=== PATIENT | female | born 1965 | race Two or more races ===

== ENCOUNTER 2024-11-01 09:34 | Emergency (ER) | payer OTHER, SELFPAY ==
--- OUTSIDE RECORDS SUMMARY | 2024-11-01 09:38 | XMS_ITS | Referral Summary ---
Author Organization [facility] Address [address] [place] [id number] Care Team Providers Care Mva Operator Name Role Phone Md, Not Listed Primary Care Provider Unavailabl e Allergies No known active allergies Medications metFORMIN (GLUCOPHAGE) 1,000 mg oral tablet Take 1,000 mg by mouth twice a day. 11/06/2020 Active atorvastatin (LIPITOR) 20 mg oral tablet Take 20 mg by mouth once daily. 11/06/2020 Active lisinopriL (PRINIVIL) 20 mg oral tablet Take 20 mg by mouth once daily. 11/06/2020 Active JANUVIA 100 mg oral tablet Take 100 mg by mouth once daily. 11/13/2020 Active levothyroxine (SYNTHROID) 150 mcg oral tablet Take 150 mcg by mouth once daily. 11/06/2020 Active aspirin 81 mg oral enteric coated tablet Take 81 mg by mouth once daily. 11/06/2020 Active JARDIANCE 10 mg oral Tab Take 10 mg by mouth once daily. 11/06/2020 Active acetaminophen (TYLENOL) 500 mg oral tablet Take 2 tablets (1,000 mg) by mouth every 6 (six) hours. 0 11/25/2020 Active lidocaine 5% (LIDODERM) Top patch Apply 1-2 patches to skin once daily. Keep on for 12 hours and remove for 12 hours 15 patch 11/26/2020 Active methocarbamoL (ROBAXIN) 500 mg oral tablet Take 1-1.5 tablets (500-750 mg) by mouth every 6 (six) hours as needed. 20 tablet 1 11/26/2020 12:07 PM CDT 11/25/2020 Active ondansetron (ZOFRAN) 4 mg oral ODT Dissolve 1 tablet (4 mg) in mouth every 6 (six) hours as needed. 10 tablet 11/26/2020 12:07 PM CDT 11/25/2020 Active oxyCODONE, immediate release, (ROXICODONE) 5 mg oral tablet Take 1 tablet (5 mg) by mouth every 8 (eight) hours as needed. 5 tablet 11/26/2020 12:07 PM CDT 11/25/2020 Active polyethylene glycol (MIRALAX) 17 gram oral packet Take 17 g by mouth once a day as needed for constipation. Mix each dose in 4-8 ounces of liquid as directed. 0 11/25/2020 Active senna-docusate (SENNA-S) 8.6-50 mg oral tablet Take 1-2 tablets by mouth twice a day. 10 tablet 11/26/2020 12:07 PM CDT 11/25/2020 Active dexAMETHasone (DECADRON) 1 mg oral tablet Take 1 tablet (1 mg) twice daily for 2 days, then 1 tablet (1 mg) once daily for 2 days, then one-half tablet (0.5 mg) once daily for 2 days. 7 tablet 11/26/2020 12:07 PM CDT 11/26/2020 Active pen needle, diabetic 31 gauge x 5/16 needle Use as directed 100 each 11/26/2020 12:07 PM CDT 11/26/2020 Active insulin aspart, pen, (NOVOLOG) 100 units/mL SubQ pen For mealtime glucose 120-149 mg/dL give 2 units, 150-199 mg/dL give 4 units, 200-249 mg/dL give 8 units, 250-299 mg/dL give 12 units, 300-349 mg/dL give 16 units, 350 mg/dL or greater give 20 units and recheck glucose in 2 hours and call MD if greater than 350 mg/dL. For bedtime glucose less than 200 mg/dL give 0 units, 200-249 mg/dL give 4 units, 250-299 mg/dL give 6 units, 300-349 mg/dL give 8 units, 350 mg/dL or greater give 10 units and recheck glucose in 2 hours and call MD if greater than 350 mg/dL 15 mL 11/26/2020 Active Active Problems Problem Noted Date Diagnosed Date Traumatic subarachnoid hemor rhage without loss of consciousness, initial encounter 11/23/2020 Scalp laceration, initial encounter 11/23/2020 Acute pain due to trauma 11/23/2020 Fall from slip, trip, or stumble 11/23/2020 Social History Tobacco Use Types Packs/Day Years Used Date Smoking Tobacco: Every Day Cigarettes Smokeless Tobacco: Never Alcohol Use Standard Drinks/Week Comments Yes 0 (1 standard drink = 0.6 oz pur e alcohol) Comments Unknown Sex and Gender Information Value Date Recorded Sex Assigned at Not on file Legal Sex Female 3:47 PM CDT Gender Identity Not on file Sexual Orientation Not on file Last Filed Vital Signs Vital Sign Reading Time Taken Comments Blood Pressure 124/78 11/26/2020 5:07 PM CDT Pulse 65 11/26/2020 5:07 PM CDT Temperature 36.9 C (98.4 F) 11/26/2020 5:07 PM CDT Respiratory Rate 18 11/26/2020 5:07 PM CDT Oxygen Saturation 96% 11/26/2020 5:07 PM CDT Inhaled Oxygen Concentration - - Weight 76.8 kg (169 lb 5 oz) 11/23/2020 10:45 PM CDT Height 167.6 cm (5' 6) 11/23/2020 10:45 PM CDT Body Mass Index 27.33 11/23/2020 10:45 PM CDT Plan of Treatment Not on file Insurance [employer] [place] [id number] Advance Directives For more information, please contact: [phone] * Full Code (Latest Code Status on File) Date Activated Date Inactivated Comments 11/23/2020 10:48 PM 11/26/2020 11:24 PM Question Answer Comments How was code status determined? Physician Yocasta thibodeaux * Full Code Date Activated Date Inactivated Comments 11/23/2020 10:48 PM 11/23/2020 10:48 PM Question Answer Comments How was code status determined? Physician Yocasta thibodeaux Care Teams Mva Operator Relationship Specialty Start Date End Date , Not Listed no address PCP - General Internal Medicine 11/23/20
--- OUTSIDE RECORDS SUMMARY | 2024-11-01 09:38 | XMS_ITS | Clinical Summary ---
Author Organization [facility] Address [address] [place] [address] Care Team Providers Care Mechanical Engineering Manager Name Role Phone No Primary/Referring, Phy Primary Care Provider Unavailable Source Comments You are receiving this document as you are listed as the primary care provider,follow-up provider, or the patient has been referred to you for consultation.This is in compliance with the Medicare andMedicaid EHR Incentive Program,which states Providers who transition their patient to another setting of careor provider of care or refers their patient to another provider of care shouldprovide summary care record for each transition of care or referral. [facility] Allergies No known active allergies Medications lisinopril (ZESTRIL) 20 MG tablet Take 20 mg by mouth daily. Active lidocaine (XYLOCAINE) 2 % jelly Apply topically. Apply to affected area with a cotton ball after bathing and using the BR Active metFORMIN (GLUCOPHAGE) 500 MG tablet Take 500 mg by mouth two times a day with meals. Active HYDROcodone-lucero taminophen (NORCO) 5-325 MG tablet 06/02/2021 Active omeprazole (PRILOSEC) 20 MG capsule Take 20 mg by mouth. 06/01/2021 Active Family History Medical History Relation Name Comments Cancer, Breast Negative Family History Cancer, Ovary Negative Family History Social History Tobacco Use Types Packs/Day Years Used Date Smoking Tobacco: Never Assessed Comments No Sex and Gender Information Value Date Recorded Sex Assigned at Not on file Legal Sex Female 11:27 AM STATE MANAGER Gender Identity Not on file Sexual Orientation Not on file Plan of Treatment Health Maintenance Due Date Last Done Comments Cervical Cancer Screening Due 1966 Colon Cancer Screening Plan Due 1966 Hep C Screening (Preventive Services) 1966 HIV Screening (Preventive Services) 1982 Adult Preventive Visit 1984 DTaP/Tdap/Td (1 - Tdap) 1985 HepB (1) 1985 Cholesterol 2011 Pneumococcal 50+ Yrs (1 of 1 - PCV) 2016 Zoster/Shingles (1 of 2) 2016 Mammogram 09/10/2018 09/10/2017 COVID-19 Vaccine (1 - 2023-2 5 season) 2024 Influenza (#1) 2024 HepA Aged Out No longer eligi ble based on patient's age to complete this topic Hib Aged Out No longer eligi ble based on patient's age to complete this topic IPV (Polio) Aged Out No longer eligi ble based on patient's age to complete this topic MCV4 Aged Out No longer eligi ble based on patient's age to complete this topic Meningococcal B Aged Out No longer el igible based on patient's age to complete this topic Procedures Procedure Name Priority Date/Time Associated Diagnosis Comments MM MAMMOGRAM SCREENING BILAT W 3D JEFFREY W CAD Routine 09/10/2017 3:52 PM STATE MANAGER Encounter for screening mammogram for malignant neoplasm of breast from Last 3 Months or Most Recently Relevant to Health Maintenance Results * (ABNORMAL) MM Mammogram Screening Bilat W Jeffrey W CAD (09/10/2017 3:52 PM STATE MANAGER) Anatomical Region Laterality Modality Breast Bilateral Mammography Impressions 09/10/2017 4:03 PM STATE MANAGER : ACR BI-RADS Category 0: Need Additional Imaging Evaluation RECOMMENDATION: Additional Mammographic Images and Ultrasound, Magnification Views and with thought towards biopsy. A member of the breast center staff will be contacting the patient to arrange for this additional study. For the convenience of the patient, a stereotactic guided biopsy will be scheduled for the same visit. If the biopsy is felt to be unnecessary after evaluating the additional imaging, the biopsy will be canceled of the left breast. The results and recommendations of this examination will be communicated to the patient and the imaging center will attempt to schedule any recommended follow up with the patient. Narrative 09/10/2017 4:03 PM STATE MANAGER MM MAMMOGRAM SCREENING BILAT W JEFFREY W CAD performed on 09/10/17 No comparisons were made when reading this study. Baseline. FINDINGS: Bilateral screening mammogram was performed with the assistance of Computer-Aided Detection and breast tomosynthesis. The breasts have scattered areas of fibroglandular density. There are indeterminate calcifications in the left breast in the retroareolar plane at posterior depth. There is an asymmetry in the left breast on the MLO view in the retroareolar plane at middle depth. The remainder of the breast tissue is unremarkable. Christina Aguilar MD RAD [facility] Final Result from Last 3 Months or Most Recently Relevant to Health Maintenance Insurance MEDICA CHOICE Care Teams Mechanical Engineering Manager Relationship Specialty Start Date End Date No Primary/Referring, Phy PCP - General 09/03/17
--- OUTSIDE RECORDS SUMMARY | 2024-11-01 09:38 | XMS_ITS | Encounter Summary ---
Author Organization [facility] Address [address] [place] [address] Care Team Providers Care Digital Marketing Analyst Name Role Phone No Primary/Referring, Phy Primary Care Provider Unavailable Encounter Details Date Type Department Care Team (Late st Contact Info) Description 09/22/2017 Consent for Procedure/Treatme nt [facility] INFORMED CONSENT RECORD Social History Tobacco Use Types Packs/Day Years Used Date Smoking Tobacco: Never Assessed Comments No Sex and Gender Information Value Date Recorded Sex Assigned at Not on file Legal Sex Female 11:27 AM PIN 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
--- OUTSIDE RECORDS SUMMARY | 2024-11-01 09:38 | XMS_ITS | Clinical Summary ---
Author Organization [facility] Address [address] [place] [id number] Care Team Providers Care Card Game Operator Name Role Phone [facility], [facility] Primary Care Provider + Allergies No known active allergies Medications naproxen (NAPROSYN) 500 mg tabletIndications: RUQ abdominal pain Take 1 tablet by mouth every 12 hours if needed for Pain. 30 tablet 0 Active aspirin (ECOTRIN) 81 mg enteric coated tablet Take 81 mg by mouth. 1 Active atorvastatin (LIPITOR) 20 mg tablet Take 20 mg by mouth. 1 Active dexAMETHasone (DECADRON) 1 mg tablet Take 2 mg by mouth. 1 Active empagliflozin (Jardiance) 10 mg tablet Take 10 mg by mouth. 1 Active insulin aspart, U-100, (NOVOLOG FLEXPEN) 100 unit/mL (3 mL) pen Inject 1-20 units subcutaneous. 1 Active levothyroxine (SYNTHROID) 150 mcg tablet Take 150 mcg by mouth. 1 Active lisinopriL (PRINIVIL; ZESTRIL) 20 mg tablet Take 20 mg by mouth. 1 Active ondansetron (ZOFRAN ODT) 4 mg disintegrating tablet Take 4 mg by mouth. 1 Active oxyCODONE (ROXICODONE) 5 mg immediate release tablet Take 5 mg by mouth. 1 Active sennosides-docusat e (SENOKOT S) (8.6-50 mg) tablet Take 1-2 Tablets by mouth. 1 Active SITagliptin (Januvia) 100 mg tablet Take 100 mg by mouth. 1 Active omeprazole (PRILOSEC) 20 mg Delayed-Release capsuleIndications :Right upper quadrant abdominal pain Take 1 Capsule (20 mg) by mouth once daily before a meal. 30 Capsule 1 Active metFORMIN (GLUCOPHAGE) 500 mg tablet Take 500 mg by mouth. Active polyethylene glycol (MIRALAX; GLYCOLAX) 17 g powder for solution Mix 17 g in liquid then take by mouth. 1 Active polyethylene glycoL (MIRALAX) 17 gram/dose powder 1 Active UltiCare Pen Needle 31 gauge x 5/16 1 Active lidocaine (XYLOCAINE) 2 % gel Apply topically to affected area(s). Active pantoprazole (PROTONIX) 40 mg delayed-release tabletIndications: Epigastric abdominal pain,Chest pain, unspecified type Take 1 Tablet (40 mg) by mouth once daily. 14 Tablet 3 Active metFORMIN (GLUCOPHAGE) 1,000 mg tablet Take 1 Tablet (1,000 mg) by mouth two times daily with meals. 3 Active ibuprofen (ADVIL; MOTRIN) 600 mg tabletIndications: Rib contusion, left, initial encounter,Fall, initial encounter,Left-noemi ed chest wall pain Take 1 Tablet (600 mg) by mouth every 8 hours if needed for Pain. Maximum of 1800 mg in 24 hours. 20 Tablet 09/30/2023 4:22 PM CDT 4 Active lidocaine 5 % topical patchIndications:R ib contusion, left, initial encounter,Left-noemi ed chest wall pain Apply to intact skin to cover most painful area for max 12hr per 24hr period. 30 Patch 4 Active methocarbamoL (ROBAXIN) 750 mg tabletIndications: Rib contusion, left, initial encounter,Left-noemi ed chest wall pain Take 1 Tablet (750 mg) by mouth every 8 hours if needed for Muscle Spasm (chest wall pain). 15 Tablet 09/30/2023 4:22 PM CDT 4 Active Active Problems Problem Noted Date Diagnosed Date Concussion with no loss of consciousness 022 Cognitive impairment 12/24/2021 Other acute pancreatitis without necrosis or inf ection 07/04/2021 Concussion with loss of consciousness 03/28/2021 Post concussion syndrome 03/28/2021 Vision disorder 03/28/2021 Tinnitus of left ear 03/28/2021 Decreased hearing of left ear 03/28/2021 Vestibular dysfunction 03/28/2021 Neck pain 03/28/2021 Post-concussion headache 03/28/2021 TMJ (temporomandibular joint disorder) Acute pain due to trauma 11/23/2020 Fall from slip, trip, or stumble 11/23/2020 Scalp laceration, initial encounter 11/23/2020 Traumatic subarachnoid hemor rhage without loss of consciousness, initial encounter 11/23/2020 Family History Relation Name Status Comments Brother 1 Alive Brother 2 Alive Father Mother Sister 1 Alive Sister 2 Alive Sister 3 Alive Sister 4 Alive Sister 5 Alive Sister 6 Social History Tobacco Use Types Packs/Day Years Used Date Smoking Tobacco: Some Days Cigarettes 0.1 15.3 Started: 07/20/2009 Smokeless Tobacco: Never Tobacco Cessation:Ready to Q uit: Not Asked; Counseling Given: Not Answered Alcohol Use Standard Drinks/Week Comments Yes 0 (1 standard drink = 0.6 oz pur e alcohol) Holidays and special occas. Social Connections Answer Date Recorded Do you often feel lonely or isolated from those around you? 0 10/17/2023 Financial Resource Strain Answer Date R ecorded Difficulty of Paying Living Expenses 3 10/17/2023 Difficulty of Paying Living Expenses Not on file 10/17/2023 Food Insecurity Answer Date Recorded Do you worry your food will run out before you are able to buy more? 1 10/17/2023 Transportation Needs Answer Date Record ed Does lack of transportation keep you from medica l appointments? 1 10/17/2023 Does lack of transportation keep you from work, meetings or getting things that you need? 1 10/17/2023 Housing Stability Answer Date Recorded What is your housing situation today? 1 10/17/2023 Interpersonal Safety Answer Date Record ed Are you being hit, kicked, p ushed or yelled at (see row info)? No 09/30/2023 Interpersonal Safety Abuse 12 - 18 Not on file 09/30/2023 Interpersonal Safety Ambulatory Vulnerability No t on file 09/30/2023 Utilities Answer Date Recorded Do you have trouble paying f or utilities (for example, heat, electricity, water, phone)? 1 10/17/2023 Comments No Sex and Gender Information Value Date Recorded Sex Assigned at Not on file Legal Sex Female 7:33 AM CDT Gender Identity Not on file Sexual Orientation Not on file Obstetrics History Last Filed Vital Signs Vital Sign Reading Time Taken Comments Blood Pressure 119/70 10/17/2023 11:47 AM CDT Pulse 85 10/17/2023 11:47 AM CDT Temperature 36.8 C (98.2 F) 10/17/2023 11:47 AM CDT Respiratory Rate 22 09/30/2023 2:23 PM CDT Oxygen Saturation 100% 10/17/2023 11:47 AM CDT Inhaled Oxygen Concentration - - Weight 77.1 kg (170 lb) 10/17/2023 11:47 AM CDT Height 165.1 cm (5' 5) 10/17/2023 11:47 AM CDT Body Mass Index 28.29 10/17/2023 11:47 AM CDT Plan of Treatment Health Maintenance Due Date Last Done Comments Tdap 1977 Depression screening for age 12+ 1978 HIV for age 15-65 1981 Hepatitis C screening for ag e 18-79 1984 Pneumococcal series for age 50+ (1 of 2 - PCV) 1985 Tetanus booster 1986 Pap test for age 21-65 1987 Colonoscopy through age 75 2011 Lipids for age 45-75 2011 Mammogram for age 45-75 2011 Zoster (shingles) series for age 50+ (1 of 2) 2016 COVID-19 vaccine series ( season) 2024 04/26/2022, 08/16/2021, 11/06/2020, Additional history exists BMI (ht and wt on same day) for age 18+ 10/16/2024 10/17/2023 Influenza Vaccine (Season Ended) 2025 Insurance MEDICA CHOICE [employer]ICE [place] [id number] MEDICA CHOICE [facility] [employer] Care Teams Card Game Operator Relationship Specialty Start Date End Date Clinic, [facility] [address] [place] [address] PCP - General 12/14/18
--- OUTSIDE RECORDS SUMMARY | 2024-11-01 09:38 | XMS_ITS | Clinical Summary ---
Author Organization [facility] Address [address] [place] [id number] Care Team Providers Care Reo Asset Manager Name Role Phone Md, Not Listed Primary [...] 11/23/2020 10:45 PM CDT Plan of Treatment Health Maintenance Due Date Last Done Comments Colonoscopy 1966 Hepatitis C Screening 1966 Mammogram Screening 1966 Pap Smear 1966 Anxiety Screening (BJ-2) 1967 Depression Assessment (PHQ-2) 1967 Adult Tetanus Booster 1985 Pneumococcal 50+ Years (1 of 1 - PCV) 2016 Zoster Vaccine (1 of 2) 2016 Yearly Review of HCD 11/23/2021 11/23/2020 COVID-19 Vaccine (3 - 2023-2 5 season) 2024 11/06/2020, 10/08/2020 Influenza Vaccine (Season Ended) 2025 05/02/2019, 04/28/2018 RSV Vaccines (1 - 1-dose 75+ series) 2041 Pneumococcal Vaccine Aged Out No long er eligible based on patient's age to complete this topic Insurance MEDICA [employer] Advance Directives For more information, please contact: [phone] * Full Code (Latest Code Status on File) Date Activated Date Inactivated Comments 11/23/2020 10:48 PM 11/26/2020 11:24 PM Question Answer Comments How was code status determined? Physician Yocasta thibodeaux * Full Code Date Activated Date Inactivated Comments 11/23/2020 10:48 PM 11/23/2020 10:48 PM Question Answer Comments How was code status determined? Physician Yocasta thibodeaux Care Teams Reo Asset Manager Relationship Specialty Start Date End Date Md, Not Listed no address PCP - General Internal Medicine 11/23/20
[2024-11-01 10:04] VITALS: BP 172/85; PULSE 80; RESP 18; TEMP 36.8; O2SAT 97
--- NOTE | 2024-11-01 10:10 | CRLHL7_ITS ---
For Patients: As a result of the Century Cures Act, medical imaging exams and procedure reports are released immediately into your electronic medical record. You may view this report before your referring provider. If you have questions, please contact your health care provider. INDICATION: Leg pain and swelling TECHNIQUE: Ultrasound venous duplex lower right extremity. Compression venous exam was performed using bourne-scale, color Doppler, and spectral Doppler imaging. COMPARISON: None. FINDINGS: Sonographic imaging demonstrates the right common femoral, deep femoral, superficial femoral, popliteal, posterior tibial and greater saphenous and the contralateral left common femoral veins to be fully compressible with normal color Doppler blood flow. IMPRESSION: Normal right lower extremity venous ultrasound, no sign of deep venous thrombosis. Dictated by Mitesh Young MD @ 11/01/2024 11:15:49 AM (Electronically Signed)
--- NOTE | 2024-11-01 11:22 | ED_ITS ---
HPI - General Adult General Date Seen: 11/01/24 Chief complaint: Extremity Pain/Injury, Lower Stated complaint: right leg pain- vein inflamation Time Seen by Provider: 11/01/24 09:41 History of Present Illness HPI narrative: Patient is a 59-year-old woman here with her daughters for evaluation of pain in her right leg and her right SI joint. Symptoms started on Thursday but today were worse. It sounds like pain is primarily in the right SI joint, it does not really hurt to move but she has pain with weight-bearing. No trauma, no fevers. She has varicosities in her legs, pretty significantly, but they are not sure whether these are the source of her leg pain. She does not have pain that radiates into the lower leg. She does not have any numbness or weakness. She does not have any swelling in legs. She has been using ibuprofen and massage without any change. She feels like there is a lump in her back that is the source of her pain. 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 Medical history is notable for diabetes, hypertension, and she just had a couple of his skin cancers removed on her face. As a result she is currently living with her daughter, does not have a local doctor. Related Data Allergies Allergy/AdvReac Type Severity Reaction Status Date / Time No Known Drug Allergies Allergy Verified 11/01/24 10:04 Review of Systems Status of ROS: Reports: 6 or more systems reviewed and unremarkable except as noted in History and below PFSH [facility] Social History How often do you have a drink containing alcohol: never AUDIT-C Alcohol total score: 0 Non-prescribed substance use: denies use Exam Narrative: Exam Narrative: Vital signs reviewed In general, alert, nontoxic woman. Head: Normocephalic, atraumatic. Eyes: Sclera clear. Pupils equal and reactive. ENT: Mucous membranes moist. Neck: Supple without adenopathy. Heart: Regular rate and rhythm without murmur. Lungs: Clear. No increased work of breathing, crackles or wheezes. Abdomen: Soft, nontender to palpation. Back: She has isolated tenderness over the right SI joint. There is no erythema or rash. Extremities: Well perfused, pulses intact. No significant edema. She has extensive varicosities without erythema or tenderness. Neurologic: Alert, conversant. Speech fluent, face symmetric. Moves all extremities equally. Strength is 5 of 5 in bilateral lower extremities. Sensations intact to light touch. Skin: Warm, dry well perfused. Affect: Normal. Const: Vital Signs, click to edit/add: Vital Signs - 24 hr 11/01/24 10:04 Temperature 98.3 F Pulse Rate [Pulse Oximeter] 80 Respiratory Rate 18 Blood Pressure [Ri ght Upper Arm] 172/85 H Pulse Oximetry 97 Oxygen Delivery Me thod Room Air Course Course ED Course: Expect her symptoms are related to some SI joint inflammation with a little bit of sciatica. I am less suspicious of disc herniation at this time, although radiculopathy is a possibility. She is neurologically intact. We did do a venous Doppler which was negative for DVT. She does not have any signs on exam of significant superficial thrombophlebitis, and I do not think her varicosities are playing a significant role in her symptoms. She is not febrile, no recent trauma, no red flags to suggest she needs more urgent imaging for back. I am going to do a plain film of her pelvis to make sure that there are no concerning findings there. Otherwise, I think it is reasonable just to treat conservatively with anti-inflammatories, I think a trial of prednisone is reasonable, continued NSAIDs, a short trial of something like tramadol and then she will need primary care follow-up. If not improving, more advanced imaging may be reasonable. I reviewed her x-ray, no acute findings. Radiology read notes some degenerative changes otherwise negative. I prescribed prednisone, tramadol, primary care follow-up in the coming week if not improving. Return for worsening symptoms. Vital Signs Vital signs: Initial Vital Signs Temperature 98.3 F 11/01/24 10:04 Temperature Source Temporal Artery Scan 11/01/24 10:04 Pulse Rate 80 11/01/24 10:04 Respiratory Rate 18 11/01/24 10:04 Blood Pressure 172/85 H 11/01/24 10:04 Blood Pressure Mean 114 H 11/01/24 10:04 Pulse Oximetry 97 11/01/24 10:04 Oxygen Delivery Method Room Air 11/01/24 10:04 Vital Signs Temperature 98.3 F 11/01/24 10:04 Pulse Rate 80 11/01/24 10:04 Respiratory Rate 18 04/15/25 10:04 Blood Pressure 172/85 H 11/01/24 10:04 Pulse Oximetry 97 11/01/24 10:04 Oxygen Delivery Method Room Air 11/01/24 10:04 Temperature 98.3 F 11/01/24 10:04 Pulse Rate 80 11/01/24 10:04 Respiratory Rate 18 11/01/24 10:04 Blood Pressure 172/85 H 11/01/24 10:04 Pulse Oximetry 97 11/01/24 10:04 Oxygen Delivery Method Room Air 11/01/24 10:04 Medications Administered Medications: Discontinued Medications Generic Name Dose Route Start Last Admin Trade Name Freq PRN Reason Stop Dose Admin Oxycodone HCl 5 mg 11/01/24 11:22 11/01/24 11:31 Oxycodone 5 Mg Tablet PO 11/01/24 11:23 5 mg ONCE ONE Administration Medical Decision Making Imaging Data Venous US: Attestation: I have reviewed the pertinent imaging results. Radiologist's impression: Patient: Kary Fernandes MR#: [id number] : 1965 Acct:[id number] Loc: ED Service Date: 11/01/[address]: Ordering Physician: Chico Osborne D.O. Date of Service: 11/01/24 Procedure(s): US venous LE RT Accession Number(s): [id number] cc: Chico Osborne D.O.~ For Patients: As a result of the Cures Act, medical imaging exams and procedure reports are released immediately into your electronic medical record. You may view this report before your referring provider. If you have questions, please contact your health care provider. INDICATION: Leg pain and swelling TECHNIQUE: Ultrasound venous duplex lower right extremity. Compression venous exam was performed using bouren-scale, color Doppler, and spectral Doppler imaging. COMPARISON: None. FINDINGS: Sonographic imaging demonstrates the right common femoral, deep femoral, superficial femoral, popliteal, posterior tibial and greater saphenous and the contralateral left common femoral veins to be fully compressible with normal color Doppler blood flow. IMPRESSION: Normal right lower extremity venous ultrasound, no sign of deep venous thrombosis. Dictated by Mitesh Young MD @ 11/01/2024 11:15:49 AM X-ray pelvis: Attestation: I have reviewed the pertinent imaging results. Radiologist's impression: Patient: Kary Fernandes MR#: [id number] : 1965 Acct:[id number] Loc: ED Service Date: 11/01/[address]: Ordering Physician: Destiney Wang M.D. Date of Service: 11/01/24 Procedure(s): XR pelvis 1-2V Accession Number(s): [id number] cc: Destiney Wang M.D.; Provider,Not a Local~ For Patients: As a result of the Cures Act, medical imaging exams and procedure reports are released immediately into your electronic medical record. You may view this report before your referring provider. If you have questions, please contact your health care provider. Indication: Right sacroiliac joint pain Technique: A single view of the pelvis was acquired Comparison: None Findings: Demineralized osseous structures. Degenerative changes of the visualized lower lumbar spine. No acute fracture, dislocation or destructive process. No definite sacroiliac joint abnormality. Please be aware that this is not a specific sacroiliac joint study which is a separate specific three-view examination. Impression: Demineralization and degenerative change. No definite sacroiliac joint abnormality on this nondedicated examination. Please review the comments. Dictated by Jordan Cadena MD @ 11/01/2024 11:56:56 AM Discharge Plan Discharge Clinical Impression: Pain of right sacroiliac joint Patient Disposition: Home, Self-Care Condition: Stable Instructions: Sacroiliitis (ED) Additional Instructions: Ibuprofen 400 mg plus Tylenol 1000 mg 3 times daily with food for baseline pain control. Prednisone taper as follows: 3 tablets daily for 3 days, then 2 tablets daily for 3 days, then 1 tablet daily for 3 days. Tramadol if needed for uncontrolled pain. If not gradually improving over the next week, please make an appointment to be seen in clinic for re-evaluation. Additional imaging may be required for further evaluation. Return any time for acute worsening or severe symptoms. Ibuprofeno 400 mg m?s Tylenol 1000 mg 3 veces al d?a con alimentos para el control del dolor basal. Reducci?n gradual de la dosis de prednisona: 3 comprimidos al d?a donavan 3 d?as, luego 2 comprimidos al d?a donavan 3 d?as, luego 1 comprimido al d?a donavan 3 d?as. Tramadol si es necesario para el dolor incontrolable. Si no mejora gradualmente donavan la siguiente semana, solicite adali rickey en la cl?geovanny para adali reevaluaci?n. Podr?an requerirse im?genes adicionales para adali evaluaci?n m?s exhaustiva. Regrese en cualquier momento si presenta un empeoramiento nasrin o s?ntomas graves. Follow Up/Referrals: Provider,Not a Local [Primary Care Provider] - Stand Alone Forms: [facility] Info Instructions
[2024-11-01] MEDS: OXYCODONE 5 MG TABLET PO (11:31)
--- OUTSIDE RECORDS SUMMARY | 2024-11-01 11:58 | XMS_ITS | Clinical Summary ---
Author Organization [facility] Address [address] [place] [address] Care Team Providers Care Assembler Dielectric Heater Name Role Phone Md, Not Listed Primary [...] Advance Directives For more information, please contact: [phone] * Full Code (Latest Code Status on File) Date Activated Date Inactivated Comments 11/23/2020 10:48 PM 11/26/2020 11:24 PM Question Answer Comments How was code status determined? Physician Yocasta thibodeaux * Full Code Date Activated Date Inactivated Comments 11/23/2020 10:48 PM 11/23/2020 10:48 PM Question Answer Comments How was code status determined? Physician Yocasta thibodeaux Care Teams Assembler Dielectric Heater Relationship Specialty Start Date End Date Md, Not Listed no address PCP - General Internal Medicine 11/23/20
--- OUTSIDE RECORDS SUMMARY | 2024-11-01 11:58 | XMS_ITS | Clinical Summary ---
Author Organization [facility] Address [address] [place] [address] Care Team Providers Care Machining Associate Name Role Phone [facility] Primary Care Provider + Allergies No known [...] CHOICE [employer] CHOICE [place] [id number] MEDICA CHOICE [facility] Care Teams Machining Associate Relationship Specialty Start Date End Date Clinic, [facility] Family [address] [place] [address] PCP - General 12/14/18
--- OUTSIDE RECORDS SUMMARY | 2024-11-01 11:58 | XMS_ITS | Encounter Summary ---
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
--- OUTSIDE RECORDS SUMMARY | 2024-11-01 11:58 | XMS_ITS | Clinical Summary ---
Author Organization [facility] Address [address] [place] [address] Care Team Providers Care Business Analyst Project Manager Name Role Phone No Primary/Referring, Phy [...] on file Legal Sex Female 11:27 AM [employer] Gender Identity Not on file Sexual Orientation [...] JEFFREY W CAD Routine 09/10/2017 3:52 PM [employer] Encounter for screening mammogram for malignant neoplasm of breast from Last 3 Months or Most Recently Relevant to Health Maintenance Results * (ABNORMAL) MM Mammogram Screening Bilat W Jeffrey W CAD (09/10/2017 3:52 PM [employer]) Anatomical Region Laterality Modality Breast Bilateral Mammography Impressions 09/10/2017 4:03 PM [employer] : ACR BI-RADS Category 0: Need Additional [...] with the patient. Narrative 09/10/2017 4:03 PM [employer] MM MAMMOGRAM SCREENING BILAT W JEFFREY W [...] Health Maintenance Insurance MEDICA CHOICE Care Teams Business Analyst Project Manager Relationship Specialty Start Date End Date No Primary/Referring, Phy PCP - General 09/03/17
--- OUTSIDE RECORDS SUMMARY | 2024-11-01 11:58 | XMS_ITS | Referral Summary ---
Author Organization [facility] Address [address] [place] [address] Care Team Providers Care Scientific Research Associate Name Role Phone Md, Not Listed Primary [...] Not on file Insurance [employer] [place] [id number] Advance Directives For more information, please contact: [phone] * Full Code (Latest Code Status on File) Date Activated Date Inactivated Comments 11/23/2020 10:48 PM 11/26/2020 11:24 PM Question Answer Comments How was code status determined? Physician Yocasta thibodeaux * Full Code Date Activated Date Inactivated Comments 11/23/2020 10:48 PM 11/23/2020 10:48 PM Question Answer Comments How was code status determined? Physician Yocasta thibodeaux Care Teams Scientific Research Associate Relationship Specialty Start Date End Date , Not Listed no address PCP - General Internal Medicine 11/23/20
== END 2024-11-01 13:39 | disposition home or self-care (01) ==
PROVIDERS: Emergency Provider Emergency Medicine
DX: M53.3 Sacrococcygeal disorders, not elsewhere classified (principal)
CPT/HCPCS: 72170; 93971; 99284; A9270

== ENCOUNTER 2024-12-01 11:13 | Emergency (ER) | payer OTHER, SELFPAY ==
[2024-12-01] VITALS (10 sets, daily range): BP systolic 144–177; BP diastolic 63–87; PULSE 101–115; RESP 18–22; TEMP 36.4; O2SAT 88–95
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
[2024-12-01] MEDS: MORPHINE 4 MG/ML INJ IVP (11:40)
[2024-12-01] MEDS: ONDANSETRON 2 MG/ML inj 4 MG IVP (11:40)
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
[2024-12-01 12:10] LABS: Creatinine, Point-of-Care* 0.5 mg/dl (0.6-1.3)
[2024-12-01 12:26] LABS: Albumin* 3.9 g/dL (3.3-5.0); Chloride* 100 mmol/L (96-114)
[2024-12-01 12:27] LABS: Potassium* 4.4 mmol/L (3.6-5.1); Sodium* 135 mmol/L (135-149)
[2024-12-01 12:29] LABS: Blood Urea Nitrogen* 14 mg/dL (7-30); Creatinine* 0.4 mg/dL (0.5-1.5); Estimated Glomerular Filt Rate 115 ml/min
[2024-12-01 12:30] LABS: Alanine Aminotransferase* 33 U/L (4-35); Alkaline Phosphatase* 148 U/L (40-150); Anion Gap 7 mEq/L (7-15); Aspartate Amino Transferase* 36 U/L (12-35); Bilirubin Total* 0.6 mg/dL (0.1-1.5); Calcium* 9.2 mg/dL (8.4-10.6); Carbon Dioxide* 28 mmol/L (20-32); Total Protein* 6.9 g/dL (6.0-8.3)
[2024-12-01 12:33] LABS: Glucose* 434 mg/dL (60-115)
[2024-12-01] MEDS: INSULIN REGULAR, HUMAN 100 UNIT/ML VIAL 10 UNIT SUBCUT (13:18)
[2024-12-01] MEDS: 0.9 % SODIUM CHLORIDE 1000 ml 1,000 ML IV (13:19)
[2024-12-01] MEDS: KETOROLAC 15 MG/ML inj IVP (14:23)
[2024-12-01] MEDS: LORazepam 1 MG TABLET 0.5 MG PO (14:50)
[2024-12-01 15:22] LABS: Glucose, Point-of-Care* 322 mg/dl (60-115)
--- OUTSIDE RECORDS SUMMARY | 2024-12-01 17:21 | XMS_ITS | Clinical Summary ---
Author Organization [facility] Address [address] [place] [id number] Care Team Providers Care Coding Specialist Home Health Name Role Phone Md, Not Listed Primary [...] Advance Directives For more information, please contact: [phone] * Full Code (Latest Code Status on File) Date Activated Date Inactivated Comments 11/23/2020 10:48 PM 11/26/2020 11:24 PM Question Answer Comments How was code status determined? Physician Yocasta thibodeaux * Full Code Date Activated Date Inactivated Comments 11/23/2020 10:48 PM 11/23/2020 10:48 PM Question Answer Comments How was code status determined? Physician Yocasta thibodeaux Care Teams Coding Specialist Home Health Relationship Specialty Start Date End Date Md, Not Listed no address PCP - General Internal Medicine 11/23/20
--- OUTSIDE RECORDS SUMMARY | 2024-12-01 17:21 | XMS_ITS | Clinical Summary ---
Author Organization [employer] [facility] Address [address] [place] [id number] Care Team Providers Care Knifeman Name Role Phone [facility], [facility] Primary Care Provider + Allergies No known active allergies Medications acetaminophen (Tylenol Extra Strength) 500 mg tablet Take 1,000 mg by mouth every 6 hours if needed for Pain. Max acetaminophen dose: 4000mg in 24 hrs. Active ibuprofen 200 mg tablet Take 200 mg by mouth every 6 hours if needed for Pain. Active pen needle (Kelly Pen Needle) 32 gauge x 5/32 (disposable insulin pen needle)Indication s:Type 2 diabetes mellitus without complication, without long-term current use of insulin (HC) Remove the 2 covers on the pen needle before administering medication dose. 100 Each 11/16/19 8:39 AM CDT 025 Active oxyCODONE 5 mg immediate release tabletIndications :Lumbar radiculopathy Take 1 Tablet (5 mg) by mouth every 6 hours if needed for moderate to severe pain. 15 Tablet 11/16/19 3:41 PM CDT 025 Active metFORMIN 500 mg Extended-Release tabletIndications :Type 2 diabetes mellitus without complication, without long-term current use of insulin (HC) Take one tablet (500 mg) twice daily for one week. If tolerating medication, increase to 2 tablets (1000 mg) twice daily. 60 Tablet 1 11/16/19 3:41 PM CDT 025 Active gabapentin 100 mg capsuleIndication s:Lumbar radiculopathy Take 2 Capsules (200 mg) by mouth three times daily. 90 Capsule 1 11/16/19 3:41 PM CDT 025 Active lidocaine 4 % topical patchIndications: Lumbar radiculopathy Apply 1 patch to intact skin to cover most painful area for max 12 hours per 24 hour period. 10 Patch 11/16/19 3:41 PM CDT 025 Active methocarbamoL 500 mg tabletIndications :Lumbar radiculopathy Take ONE AND ONE-HALF Tablets (750 mg) by mouth every 6 hours if needed for Muscle Spasms. 1st choice. 15 Tablet 11/16/19 3:41 PM CDT 025 Active Lantus Solostar U-100 Insulin 100 unit/mL (3 mL) penIndications:Ty pe 2 diabetes mellitus without complication, without long-term current use of insulin (HC) Inject 25 units subcutaneous once daily. 15 mL 2 11/16/19 3:41 PM CDT 025 Active OneTouch Verio Flex meterIndications: Type 2 diabetes mellitus without complication, without long-term current use of insulin (HC) Test 3 times daily. 1 Each 11/16/19 3:41 PM CDT 025 Active OneTouch Delica Plus Lancet 33 gauge miscIndications:T ype 2 diabetes mellitus without complication, without long-term current use of insulin (HC) Test 3 times daily. 100 Each 11/16/19 3:41 PM CDT 025 Active OneTouch Verio test strips stripIndications: Type 2 diabetes mellitus without complication, without long-term current use of insulin (HC) Dispense item covered by pt ins. E11.65 NIDDM type II, uncontrolled - Test 3 times per day. Reason: New medication 100 Each 11/16/19 3:41 PM CDT 025 Active naproxen (NAPROSYN) 500 mg tabletIndications :RUQ abdominal pain Take 1 tablet by mouth every 12 hours if needed for Pain. 30 tablet 020 2024 Discontinued(P harmacist change per medication history (E-cancel not sent)) aspirin (ECOTRIN) 81 mg enteric coated tablet Take 81 mg by mouth. 021 2024 Discontinued(P harmacist change per medication history (E-cancel not sent)) atorvastatin (LIPITOR) 20 mg tablet Take 20 mg by mouth. 2024 Discontinued(P harmacist change per medication history (E-cancel not sent)) dexAMETHasone (DECADRON) 1 mg tablet Take 2 mg by mouth. 2024 Discontinued(P harmacist change per medication history (E-cancel not sent)) empagliflozin (Jardiance) 10 mg tablet Take 10 mg by mouth. 2024 Discontinued(P harmacist change per medication history (E-cancel not sent)) insulin aspart, U-100, (NOVOLOG FLEXPEN) 100 unit/mL (3 mL) pen Inject 1-20 units subcutaneous. 2024 Discontinued(P harmacist change per medication history (E-cancel not sent)) levothyroxine (SYNTHROID) 150 mcg tablet Take 150 mcg by mouth. 2024 Discontinued(P harmacist change per medication history (E-cancel not sent)) lisinopriL (PRINIVIL; ZESTRIL) 20 mg tablet Take 20 mg by mouth. 2024 Discontinued(P harmacist change per medication history (E-cancel not sent)) ondansetron (ZOFRAN ODT) 4 mg disintegrating tablet Take 4 mg by mouth. 2024 Discontinued(P harmacist change per medication history (E-cancel not sent)) oxyCODONE (ROXICODONE) 5 mg immediate release tablet Take 5 mg by mouth. 2024 Discontinued(P harmacist change per medication history (E-cancel not sent)) sennosides-docusa te (SENOKOT S) (8.6-50 mg) tablet Take 1-2 Tablets by mouth. 2024 Discontinued(P harmacist change per medication history (E-cancel not sent)) SITagliptin (Januvia) 100 mg tablet Take 100 mg by mouth. 5 Discontinued(P harmacist change per medication history (E-cancel not sent)) omeprazole (PRILOSEC) 20 mg Delayed-Release capsuleIndication s:Right upper quadrant abdominal pain Take 1 Capsule (20 mg) by mouth once daily before a meal. 30 Capsule 2024 Discontinued(P harmacist change per medication history (E-cancel not sent)) metFORMIN (GLUCOPHAGE) 500 mg tablet Take 500 mg by mouth. 2024 Discontinued(P harmacist change per medication history (E-cancel not sent)) polyethylene glycol (MIRALAX; GLYCOLAX) 17 g powder for solution Mix 17 g in liquid then take by mouth. 2024 Discontinued(P harmacist change per medication history (E-cancel not sent)) polyethylene glycoL (MIRALAX) 17 gram/dose powder 2024 Discontinued(P harmacist change per medication history (E-cancel not sent)) UltiCare Pen Needle 31 gauge x 5/16 2024 Discontinued(P harmacist change per medication history (E-cancel not sent)) lidocaine (XYLOCAINE) 2 % gel Apply topically to affected area(s). 2024 Discontinued(P harmacist change per medication history (E-cancel not sent)) pantoprazole (PROTONIX) 40 mg delayed-release tabletIndications :Epigastric abdominal pain,Chest pain, unspecified type Take 1 Tablet (40 mg) by mouth once daily. 14 Tablet 2024 Discontinued(P harmacist change per medication history (E-cancel not sent)) metFORMIN (GLUCOPHAGE) 1,000 mg tablet Take 1 Tablet (1,000 mg) by mouth two times daily with meals. 2024 Discontinued(P harmacist change per medication history (E-cancel not sent)) ibuprofen (ADVIL; MOTRIN) 600 mg tabletIndications :Rib contusion, left, initial encounter,Fall, initial encounter,Left-si ded chest wall pain Take 1 Tablet (600 mg) by mouth every 8 hours if needed for Pain. Maximum of 1800 mg in 24 hours. 20 Tablet 09/30/19 24 4:22 PM CDT 024 2024 Discontinued(P harmacist change per medication history (E-cancel not sent)) lidocaine 5 % topical patchIndications: Rib contusion, left, initial encounter,Left-si ded chest wall pain Apply to intact skin to cover most painful area for max 12hr per 24hr period. 30 Patch 024 2024 Discontinued(P harmacist change per medication history (E-cancel not sent)) methocarbamoL (ROBAXIN) 750 mg tabletIndications :Rib contusion, left, initial encounter,Left-si ded chest wall pain Take 1 Tablet (750 mg) by mouth every 8 hours if needed for Muscle Spasm (chest wall pain). 15 Tablet 09/30/19 24 4:22 PM CDT 024 2024 Discontinued(P harmacist change per medication history (E-cancel not sent)) traMADoL 50 mg tablet Take 50 mg by mouth every 6 hours if needed for Pain. 2024 Discontinued(* IP Discontinued) Lantus Solostar U-100 Insulin 100 unit/mL (3 mL) penIndications:Ty pe 2 diabetes mellitus without complication, without long-term current use of insulin (HC) Inject 20 units subcutaneous once daily. 15 mL 2 025 2024 Discontinued methylPREDNISolon e 4 mg tabletIndications :Lumbar radiculopathy Take 2 Tablets (8 mg) by mouth once daily with a meal for 1 day, THEN 1 Tablet (4 mg) once daily with a meal for 1 day. 3 Tablet 11/16/19 3:41 PM CDT 025 2024 Active Problems Problem Noted Date Diagnosed Date Lumbar radiculopathy 11/11/2024 Type 2 diabetes mellitus wit hout complication, without long-term current use of insulin 11/11/2024 Primary hypertension 11/11/2024 Other hyperlipidemia 11/11/2024 Coronary artery disease invo lving [place] coronary artery of [place] heart without angina pectoris 11/11/2024 Other specified hypothyroidism 11/11/2024 Concussion with no loss of consciousness 022 [...] without loss of consciousness, initial encounter 11/23/2020 Encounters Date Type Department Care Team Description 11/30/20[address] [facility] [address] [place] [address] Ruddy Patel MD 11/21/[address] [facility] [address] [place] [address] Ruddy Patel MD Screening 11/15/2024 Orders Only [facility] Neurosurgery [id number] [address] [facility] [[email or web address] [address] [place] [address] Emily Cabrera PA <No scans attached> 11/11/2024 6:30 AM CDT - 11/15/2024 4:32 PM CDT Hospital Encounter [facility] [address] [place] [address] Gregg Taylor MD Doctors(d), [facility], MD Leland Pham Robert Michael, DO [place], Dalton Davalos MD [facility] [place] [facility] Melisa, MD Dimple Tobar, Fabricio Haque MD L4-L5 disc bulge (Primary Dx); Lumbar radiculopathy; Type 2 diabetes mellitus without complication, without long-term current use of insulin (HC) Discharge Disposition: Home Self Care 11/11/2024 Travel from Last 3 Months Family History Relation Name Status Comments Brother 1 Alive Brother 2 Alive Father Mother Sister 1 Alive Sister 2 Alive Sister 3 Alive Sister 4 Alive Sister 5 Alive Sister 6 Social History Tobacco Use Types Packs/Day Years Used Date Smoking Tobacco: Some Days Cigarettes 0.1 15.4 Started: 07/20/2009 Smokeless Tobacco: Never Tobacco Cessation:Ready to Q uit: Not Asked; Counseling Given: Not Answered Alcohol Use Standard Drinks/Week Comments Yes 0 (1 standard drink = 0.6 oz pur e alcohol) Holidays and special occas. Social Connections Answer Date Recorded Do you often feel lonely or isolated from those around you? 0 11/14/2024 Financial Resource Strain Answer Date R ecorded Difficulty of Paying Living Expenses 3 11/14/2024 Difficulty of Paying Living Expenses Not on file 11/14/2024 Food Insecurity Answer Date Recorded Do you worry your food will run out before you are able to buy more? 1 11/14/2024 Transportation Needs Answer Date Record ed Does lack of transportation keep you from medica l appointments? 1 11/14/2024 Does lack of transportation keep you from work, meetings or getting things that you need? 1 11/14/2024 Housing Stability Answer Date Recorded What is your housing situation today? 1 11/14/2024 Interpersonal Safety Answer Date Record ed Are you being hit, kicked, p ushed or yelled at (see row info)? No 11/11/2024 Interpersonal Safety Abuse 12 - 18 Not on file 11/11/2024 Interpersonal Safety Ambulatory Vulnerability No t on file 11/11/2024 Utilities Answer Date Recorded Do you have trouble paying f or utilities (for example, heat, electricity, water, phone)? 1 11/14/2024 Comments No Sex and Gender Information Value Date Recorded Sex Assigned at Not on file Legal Sex Female 7:33 AM CDT Gender Identity Not on file Sexual Orientation Not on file Obstetrics History Last Filed Vital Signs Vital Sign Reading Time Taken Comments Blood Pressure 150/85 11/15/2024 4:00 PM CDT Pulse 83 11/15/2024 4:00 PM CDT Temperature 36.6 C (97.8 F) 11/15/2024 8:30 AM CDT Respiratory Rate 18 11/15/2024 4:00 PM CDT Oxygen Saturation 94% 11/15/2024 4:00 PM CDT Inhaled Oxygen Concentration - - Weight 77.1 kg (170 lb) 11/11/2024 5:24 AM CDT Height 157.5 cm (5' 2) 11/11/2024 5:24 AM CDT Body Mass Index 31.09 11/11/2024 5:24 AM CDT Plan of Treatment Upcoming Encounters Date Type Department Care Team (Late st Contact Info) Description 12/08/2024 11:00 AM CDT Office Visit [facility] Neurosurgery [address] [place] [phone] Chico Alexander MD [address] [facility] [address] [place], [place] [id number] Health Maintenance Due Date Last Done Comments [...] 10/16/2024 10/17/2023 Influenza Vaccine (Season Ended) 2025 Procedures Procedure Name Priority Date/Time Associated Diagnosis Comments GLUCOSE METER Timed 11/15/2024 1:33 PM CDT GLUCOSE METER Timed 11/15/2024 11:02 AM CDT GLUCOSE METER Timed 11/15/2024 8:33 AM CDT GLUCOSE METER Timed 11/15/2024 2:09 AM CDT GLUCOSE METER Timed 11/14/2024 8:59 PM CDT GLUCOSE METER Timed 11/14/2024 5:02 PM CDT GLUCOSE METER Timed 11/14/2024 4:54 PM CDT GLUCOSE METER Timed 11/14/2024 12:30 PM CDT GLUCOSE METER Timed 11/14/2024 10:29 AM CDT GLUCOSE METER Timed 11/14/2024 7:51 AM CDT GLUCOSE METER Timed 11/14/2024 6:48 AM CDT GLUCOSE METER Timed 11/14/2024 2:22 AM CDT GLUCOSE METER Timed 11/13/2024 9:23 PM CDT GLUCOSE METER Timed 11/13/2024 4:21 PM CDT GLUCOSE METER Timed 11/13/2024 11:27 AM CDT GLUCOSE METER Timed 11/13/2024 7:54 AM CDT GLUCOSE METER Timed 11/13/2024 2:51 AM CDT GLUCOSE, RANDOM STAT 11/12/2024 11:37 PM CDT GLUCOSE, RANDOM STAT 11/12/2024 10:04 PM CDT GLUCOSE METER Timed 11/12/2024 9:18 PM CDT GLUCOSE METER Timed 11/12/2024 4:57 PM CDT GLUCOSE METER Timed 11/12/2024 11:30 AM CDT HEMOGLOBIN A1C MONITORING (POCT) Today 11/12/2024 10:15 AM CDT GLUCOSE METER Timed 11/12/2024 10:09 AM CDT GLUCOSE METER Timed 11/12/2024 7:55 AM CDT GLUCOSE METER Timed 11/12/2024 6:20 AM CDT GLUCOSE METER Timed 11/12/2024 3:40 AM CDT GLUCOSE METER Timed 11/11/2024 2:51 PM CDT MR SPINE LUMBAR WO STAT 11/11/2024 9: 16 AM CDT from Last 3 Months Results * (ABNORMAL) GLUCOSE METER (11/15/2024 1:33 PM CDT) Only the most recent of25 resultswithin the time period is included. GLUCOSE METER 407(H) 65 - 100 mg/dL 11/15/2024 1:37 PM CDT [facility] Blood BLOOD SPECIMEN / Unknown 11/15/2024 1:33 PM CDT 11/15/2024 1:37 PM CDT us Fabricio Musa MD CHEMISTRY Final Result [facility] INTERNAL [facility] [id number] [place] [address] * (ABNORMAL) GLUCOSE, RANDOM (11/12/2024 11:37 PM CDT) Only the most recent of2 resultswithin the time period is included. GLUCOSE,RANDOM 480(H) 70 - 139 mg/dL 11/13/2024 12:22 AM CDT [facility] Blood BLOOD SPECIMEN / Unknown Butterfly / Unknown 11/12/2024 11:37 PM CDT 11/12/2024 11:45 PM CDT us Austin Vincent MD CHEMISTRY Final Result [facility] INTERNAL ZIP [address] [address] [place] [address] * (ABNORMAL) HEMOGLOBIN A1C MONITORING (POCT) (11/12/2024 10:15 AM CDT) HEMOGLOBIN A1C MONITORING (POCT) 12.2(H) <=6.4 % 11/12/2024 3:31 PM CDT [facility] Blood BLOOD SPECIMEN / Unknown Butterfly / Unknown 11/12/2024 10:15 AM CDT 11/12/2024 10:18 AM CDT Narrative [facility] - 11/12/2024 3:31 PM CDT (<=6.9%) Indicates good control (7.0% to 7.9%) Indicates fair control (>=8.0%) Indicates poor control NOTE: These thresholds are guidelines and individual targets may vary. Falsely low levels may be seen with: Recent Transfusion, Recent Significant Blood Loss, Hemolytic Diseases, or Falsely elevated levels may be seen with: Untreated Anemias, Splenectomy us Austin Vincent MD CHEMISTRY Final Result [facility] [address] [place] [address], [place] * MR SPINE LUMBAR WO (11/11/2024 9:16 AM CDT) Anatomical Region Laterality Modality Spine, LUMBAR SPINE Magnetic Res onance 11/11/2024 9:16 AM CDT Impressions 11/11/2024 9:37 AM CDT 1. Lower lumbar spondylosis. 2. Moderate size right extraforaminal disc extrusion at L4-L5 displaces and possibly impinges the exiting right L4 spinal nerve. 3. Eccentric right disc bulge with superimposed right foraminal disc protrusion at L5-S1 displaces and possibly impinges the descending right S1 nerve roots, right L5 dorsal root ganglion and exiting right L5 spinal nerve. 4. Moderate right neural foraminal stenosis at L5-S1. Mild to moderate right neural foraminal stenosis at L4-L5. Mild left neural foraminal stenosis L4-S1. 5. No significant spinal canal stenosis. Narrative 11/11/2024 9:37 AM CDT For Patients: As a result of the Cures Act, medical imaging exams and procedure reports are released immediately into your electronic medical record. You may view this report before your referring provider. If you have questions, please contact your health care provider. EXAM: MR SPINE LUMBAR WO LOCATION: [facility] DATE: 11/11/2024 INDICATION: Lumbar radiculopathy, symptoms persist with > 6 wks treatment mild right LE weakness (plantarflexion) COMPARISON: None. TECHNIQUE: Routine Lumbar Spine MRI without IV contrast. FINDINGS: 5 lumbar type vertebrae counting down from the presumed 12th ribs. The tip the conus medullaris is at L1-L2. The cauda equina roots and visualized lower thoracic spinal cord are within normal limits. Normal alignment of the lumbar vertebrae. Normal lumbar lordosis. Normal vertebral body heights and marrow signal. No fracture, destructive bone lesion or infection. Mild to moderate symmetric lower lumbar predominant dorsal paraspinous muscular atrophy. Visualized bony pelvis is unremarkable. Small renal cortical cystic T2 signal foci. Visualized flowing ventral osteitis throughout the lower thoracic spine, consistent with diffuse idiopathic skeletal hyperostosis. Findings on a level by level basis are as follows: T12-L1: Normal disc height and signal. No herniation. Normal facets. No spinal canal or neural foraminal stenosis. L1-L2: Normal disc height and signal. No herniation. Normal facets. No spinal canal or neural foraminal stenosis. L2-L3: Normal disc height and signal. No herniation. Normal facets. No spinal canal or neural foraminal stenosis. L3-L4: Normal disc height and signal. No herniation. Normal facets. No spinal canal or neural foraminal stenosis. L4-L5: Minimal disc height loss. Loss of disc signal. Disc bulge with annular fissuring. 8mm AP dimension right extraforaminal disc extrusion displaces the exiting right L4 spinal nerve. Mild to moderate right and mild left neural foraminal stenosis. No significant spinal canal stenosis. L5-S1: Mild to moderate disc height loss. Loss of disc signal. Eccentric right disc bulge with superimposed 7 mm AP dimension right extraforaminal disc protrusion, which displaces the descending right S1 nerve roots, right L5 dorsal root ganglion and exiting right L5 spinal nerve. Facet arthrosis. Moderate right and mild left neural foraminal stenosis. No significant spinal canal stenosis. Procedure Note Devonte Amanda MD - 11/11/2024 For Patients: As a result of the Cures Act, medical imagingexams and procedure reports are released immediately into your electronicmedical record. You may view this report before your referring provider.If you have questions, please contact your health care provider. EXAM: MR SPINE LUMBAR WO LOCATION: [facility] DATE: 11/11/2024 INDICATION: Lumbar radiculopathy, symptoms persist with > 6 wkstreatment mild right LE weakness (plantarflexion) COMPARISON: None. TECHNIQUE: Routine Lumbar Spine MRI without IV contrast. FINDINGS: 5 lumbar type vertebrae counting down from the presumed 12th ribs. The tipthe conus medullaris is at L1-L2. The cauda equina roots and visualizedlower thoracic spinal cord are within normal limits. Normal alignment of the lumbar vertebrae. Normal lumbar lordosis. Normalvertebral body heights and marrow signal. No fracture, destructive bonelesion or infection. Mild to moderate symmetric lower lumbar predominantdorsal paraspinous muscular atrophy. Visualized bony pelvis isunremarkable. Small renal cortical cystic T2 signal foci. Visualizedflowing ventral osteitis throughout the lower thoracic spine, consistentwith diffuse idiopathic skeletal hyperostosis. Findings on a level by level basis are as follows: T12-L1: Normal disc height and signal. No herniation. Normal facets. Nospinal canal or neural foraminal stenosis. L1-L2: Normal disc height and signal. No herniation. Normal facets. Nospinal canal or neural foraminal stenosis. L2-L3: Normal disc height and signal. No herniation. Normal facets. Nospinal canal or neural foraminal stenosis. L3-L4: Normal disc height and signal. No herniation. Normal facets. Nospinal canal or neural foraminal stenosis. L4-L5: Minimal disc height loss. Loss of disc signal. Disc bulge withannular fissuring. 8mm AP dimension right extraforaminal disc extrusiondisplaces the exiting right L4 spinal nerve. Mild to moderate right andmild left neural foraminal stenosis. No significant spinal canalstenosis. L5-S1: Mild to moderate disc height loss. Loss of disc signal. Eccentricright disc bulge with superimposed 7 mm AP dimension right extraforaminaldisc protrusion, which displaces the descending right S1 nerve roots,right L5 dorsal root ganglion and exiting right L5 spinal nerve. Facetarthrosis. Moderate right and mild left neural foraminal stenosis. Nosignificant spinal canal stenosis. IMPRESSION: 1. Lower lumbar spondylosis. 2. Moderate size right extraforaminal disc extrusion at L4-L5 displacesand possibly impinges the exiting right L4 spinal nerve. 3. Eccentric right disc bulge with superimposed right foraminal discprotrusion at L5-S1 displaces and possibly impinges the descending rightS1 nerve roots, right L5 dorsal root ganglion and exiting right L5 spinalnerve. 4. Moderate right neural foraminal stenosis at L5-S1. Mild to moderateright neural foraminal stenosis at L4-L5. Mild left neural foraminalstenosis L4-S1. 5. No significant spinal canal stenosis. Gregg Taylor MD MR Final Re sult from Last 3 Months Insurance [facility] [facility] [employer] Advance Directives * Full Code (Latest Code Status on File) Date Activated Date Inactivated Comments 11/13/2024 4:26 PM 11/15/2024 6:37 PM Question Answer Comments Code Status Discussion: Reviewed Preferences * DNR Date Activated Date Inactivated Comments 11/11/2024 11:23 AM 11/13/2024 4:26 PM Question Answer Comments Code Status Discussion: Reviewed Preferences Care Teams Knifeman Relationship Specialty Start Date End Date Clinic, [facility] Family [address] [place] [address] PCP - General 12/14/18
--- OUTSIDE RECORDS SUMMARY | 2024-12-01 17:21 | XMS_ITS | Encounter Summary ---
Author Organization [facility] Address [address] [place] [address] Care Team Providers Care Environmental Health Safety Manager Name Role Phone No Primary/Referring, Phy [...] on file Legal Sex Female 11:27 AM PHARMACY AIDE Gender Identity Not on file Sexual Orientation Not on file documented as of this encounter Plan of Treatment Not on file documented as of this encounter Visit Diagnoses Not on filedocumented in this encounter Care Teams Environmental Health Safety Manager Relationship Specialty Start Date End Date No Primary/Referring, Bertin PCP - General 09/03/17 documented as of this encounter
--- OUTSIDE RECORDS SUMMARY | 2024-12-01 17:21 | XMS_ITS | Clinical Summary ---
Author Organization [facility] Address [address] [place] [address] Care Team Providers Care Data Entry Representative Name Role Phone No Primary/Referring, Phy Primary [...] on file Legal Sex Female 11:27 AM LEVEL VIAL CURVATURE GAUGER Gender Identity Not on file Sexual Orientation Not on file Plan of Treatment Health Maintenance Due Date Last Done Comments Cervical Cancer Screening Due 1966 Colon Cancer Screening Plan Due 1966 Hep C Screening (Preventive Services) 1966 HIV Screening (Preventive Services) 1982 Adult Preventive Visit 1984 DTaP/Tdap/Td Vaccine (1 - Tdap) 1985 HepB Vaccine (1) 1985 Cholesterol 2011 Pneumococcal Vaccine 50+ Yrs (1 of 1 - PCV) 2016 Zoster/Shingles Vaccine (1 of 2) 2016 Mammogram 09/10/2018 09/10/2017 COVID-19 Vaccine (1 - 2023-2 5 season) 2024 Influenza Vaccine (Season Ended) 2025 HepA Vaccine Aged Out No longer eligi ble based on patient's age to complete this topic Hib Vaccine Aged Out No longer eligi ble based on patient's age to complete this topic IPV (Polio) Vaccine Aged Out No longe r eligible based on patient's age to complete this topic MCV4 Vaccine Aged Out No longer eligi ble based on patient's age to complete this topic Meningococcal B Vaccine Aged Out No l onger eligible based on patient's age to complete this topic Procedures Procedure Name Priority Date/Time Associated Diagnosis Comments MM MAMMOGRAM SCREENING BILAT W 3D JEFFREY W CAD Routine 09/10/2017 3:52 PM LEVEL VIAL CURVATURE GAUGER Encounter for screening mammogram for malignant neoplasm of breast from Last 3 Months or Most Recently Relevant to Health Maintenance Results * (ABNORMAL) MM Mammogram Screening Bilat W Jeffrey W CAD (09/10/2017 3:52 PM LEVEL VIAL CURVATURE GAUGER) Anatomical Region Laterality Modality Breast Bilateral Mammography Impressions 09/10/2017 4:03 PM LEVEL VIAL CURVATURE GAUGER : ACR BI-RADS Category 0: Need Additional [...] with the patient. Narrative 09/10/2017 4:03 PM LEVEL VIAL CURVATURE GAUGER MM MAMMOGRAM SCREENING BILAT W JEFFREY W [...] Health Maintenance Insurance [employer] Care Teams Data Entry Representative Relationship Specialty Start Date End Date No Primary/Referring, Phy PCP - General 09/03/17
--- OUTSIDE RECORDS SUMMARY | 2024-12-01 17:21 | XMS_ITS | Referral Summary ---
Author Organization [facility] Address [address] [place] [id number] Care Team Providers Care Roll On Worker Name Role Phone Md, Not Listed Primary [...] Treatment Not on file Insurance [employer] [place] [id number] Advance Directives For more information, please contact: [phone] * Full Code (Latest Code Status on File) Date Activated Date Inactivated Comments 11/23/2020 10:48 PM 11/26/2020 11:24 PM Question Answer Comments How was code status determined? Physician Yocasta thibodeaux * Full Code Date Activated Date Inactivated Comments 11/23/2020 10:48 PM 11/23/2020 10:48 PM Question Answer Comments How was code status determined? Physician Yocasta thibodeaux Care Teams Roll On Worker Relationship Specialty Start Date End Date , Not Listed no address PCP - General Internal Medicine 11/23/20
[2024-12-01 18:25] LABS: Basophils Absolute Auto 0.02 K/uL (0.00-0.30); Basophils Percent Auto 0.3 % (0.0-3.0); Eosinophils Absolute Auto 0.07 K/uL (0.00-0.50); Eosinophils Percent Auto 0.9 % (0.0-7.0); Hematocrit 40.7 % (33.0-51.0); Hemoglobin* 14.1 gm/dL (12.0-16.0); Immature Granulocytes Abs Auto 0.04 K/uL (0.00-0.30); Immature Granulocytes Pct Auto 0.5 %; Lymphocytes Percent Auto 14.7 % (20-44); Mean Corpuscular HGB Conc 35 gm/dL (32-36); Mean Corpuscular Hemoglobin 31 pg (26-34); Mean Corpuscular Volume 89 fL (80-100); Monocytes Percent Auto 5.7 % (0.0-11.0); Neutrophils Percent Auto 77.9 % (42.0-72.0); Platelet Count* 180 K/uL (140-440); RDW Coefficient of Variation % 11.2 % (11.5-15.5); Red Blood Count 4.59 m/uL (4.00-5.20); White Blood Count* 7.39 K/uL (4.50-11.00)
[2024-12-01 18:27] LABS: Slide Review Reflex No
== END 2024-12-01 15:15 | disposition home or self-care (01) ==
PROVIDERS: Emergency Provider Emergency Medicine
DX: M54.2 Cervicalgia (principal); M54.9 Dorsalgia, unspecified; V43.62XA Car passenger injured in collision with other type car in traffic accident, initial encounter
CPT/HCPCS: 36415; 70450; 71260; 72125; 72128; 72131; 74177; 76604; 76705; 80053; 82565; 82947; 82962; 84484; 85025; 93005; 93308; 94761; 96374; 96375; 99284; 99285; T1013; A9270; J1815; J1885; J2270; J2405; J7030; Q9967